=== PATIENT | male | born 1975 | race Caucasian/White ===

== ENCOUNTER 2017-07-30 11:56 | Day surgery (SDC) | payer OTHER ==
--- NOTE | 2017-07-29 15:18 | GHP ---
[f rep st] PREOP HISTORY AND PHYSICAL DATE OF ADMISSION: 07/30/2017 ADMISSION DIAGNOSIS: A 6 mm right ureteral calculus with hydronephrosis. HISTORY OF PRESENT ILLNESS: This is a gentleman who has had the above diagnosis who had attempted a spontaneous passage, unsuccessful, and he is admitted for ureteroscopic removal of stone. PAST MEDICAL HISTORY: He has had hematuria, ureterolithiasis, hypercholesterolemia, hypertension. PAST SURGICAL HISTORY: Surgery for kidney stones. MEDICATIONS: Advil, doxycycline, [place]. ALLERGIES: Penicillin and Nexium. FAMILY HISTORY: He is adopted. SOCIAL HISTORY: A nonsmoker, nondrinker. . REVIEW OF SYSTEMS: Negative for cardiac, respiratory, GI and endocrine. PHYSICAL EXAMINATION: VITAL SIGNS: Stable. CHEST: Clear. HEART: Regular rate and rhythm. ABDOM EN: Normal. No organomegaly, rebound or guarding. EXTREMITIES: Lower extremities are normal. ASSESSMENT AND PLAN: He will be admitted for a right ureteroscopic removal of the calculus. Indicat ion and complications have been discussed. /[id number]/MODL
--- NOTE | 2017-07-30 08:40 | PDHPUP ---
History & Physical Update H&P update statement: This history and physical update is based on an assessment of the patient which was completed after admission or registration (within 24 hours), but prior to the surgery/procedure. H&P update: H&P reviewed & patient examined, no change in patient's condition since H&P completed
[~2017-07-30 11:56] MED LIST: IOPAMIDOL (ISOVUE-M 300) 15 ML VIAL ONE; LIDOCAINE 2% JELLY 20 ML (UROJECT) ONE; ceFAZolin 2 GM/SWFI 2 GM/20 ML SYR IVP ONE
[2017-07-30] MEDS ORDERED: LR 1,000 ML IV ONE (12:01)
[2017-07-30] MEDS ORDERED: ceFAZolin 2 GM/SWFI 20 ML SYR IVP ONE (12:06)
--- NOTE | 2017-07-30 12:13 | PDANEPAE ---
ANE History of Present Illness 41 year old male presents for right ureteroscopy and stone removal. ANE Past Medical History - Cardiovascular History Hx Hypertension: No Hx Arrhythmias: No Hx Chest Pain: No Hx Coronary Artery / Peripheral Vascular Disease: No Hx CHF / Valvular Disease: No Hx Palpitations: No - Pulmonary History Hx COPD: No Hx Asthma/Reactive Airway Disease: No Hx Recent Upper Respiratory Infection: No Hx Oxygen in Use at Home: No Hx Sleep Apnea: Yes Sleep Apnea Screening Result - Last Documented: Positive Pulmonary History Comment: KEILA. PT CURRENTLY HAS PNEUMONIA - Neurologic History Hx Cerebrovascular Accident: No Hx Seizures: No Hx Dementia: No - Endocrine History Hx Diabetes: No Hypothyroid: No Hyperthyroid: No Obesity: yes - Renal History Hx Renal Disorders: No Renal History Comment: KIDNEY STONES - Liver History Hx Hepatic Disorders: Yes Hepatic History Comment: FATTY LIVER - Neurological & Psychiatric Hx Hx Neurological and Psychiatric Disorders: No - Cancer History Hx Cancer: No - Congenital Disorder History Hx Congenital Disorders: No Congenital History Comment: PT ADOPTED - GI History GERD: mild Hx Gastrointestinal Disorders: Yes Gastrointestinal History Comment: GERD - Other Health History Other Health History: NONE - Chronic Pain History Chronic Pain: No - Surgical History Prior Surgeries: KIDNEY STONE REMOVED 2013 ANE Review of Systems Review of systems is: negative Review of Systems: - Exercise capacity Exercise capacity: >=4 METS METS (RN): 4 METS ANE Patient History - Allergies Allergies/Adverse Reactions: esomeprazole magnesium [From Nexium] Allergy (Intermediate, Verified 07/29/17 12 :46) Other-Enter Comments Penicillins Allergy (Intermediate, Verified 07/29/17 12:46) Abdominal Pain - Home Medications Home medications: home medication list seen and reviewed Home Medications: Ceftin 07/29/17 [Last Taken 07/30/17] [place] 5/325 (*) 07/29/17 [Last Taken 07/30/17] Advil 400 mg PO PRN 07/30/17 [Last Taken 1 Day Ago ~07/29/17] - NPO status NPO Status: no food or drink >8 hours - Anes Hx Anes Hx: no prior problems - Smoking Hx Smoking Status: Never smoked Marijuana use: No - Alcohol Use Alcohol Use: Rarely - Family Anes Hx Family Anes Hx: neg - N/A Family Hx Anesthesia Complications: NONE ANE Labs/Vital Signs - Vital Signs Vital Signs: reviewed preoperatively; see RN documention for details Height: 165.1 cm Weight: 106.594 kg ANE Physical Exam - Airway Neck exam: FROM, increased neck circumference Mallampati Score: Class 2 Mouth exam: normal dental/mouth exam - Pulmonary Pulmonary: no respiratory distress - Cardiovascular Cardiovascular: regular rate and rhythym - ASA Status ASA Status: II ANE Anesthesia Plan Anesthesia Plan: GA w LMA Total IV Anesthesia: No
[2017-07-30] MEDS ORDERED: fentaNYL 100 MCG/2 ML INJ ONE ×3 (12:34→14:03)
[2017-07-30] MEDS ORDERED: PROPOFOL 200 MG/20 ML VIAL ONE (12:34)
[2017-07-30] MEDS ORDERED: DEXAMETHASONE 4 MG/ML VIAL ONE (12:44)
[2017-07-30] MEDS ORDERED: ONDANSETRON 4 MG/2 ML VIAL ONE (12:45)
[2017-07-30] MEDS ORDERED: LIDOCAINE 2% 5 ML SDV ONE (12:45)
[2017-07-30] MEDS ORDERED: PROMETHAZINE HCL 25 MG/ML INJ IVP PRN (13:57)
[2017-07-30] MEDS ORDERED: NALOXONE HCL 0.4 MG/ML INJ IVP PRN (13:57)
[2017-07-30] MEDS ORDERED: PHENYLEPHRINE HCL 100 MCG/ML SYR IVP PRN (13:57)
[2017-07-30] MEDS ORDERED: ONDANSETRON 4 MG/2 ML VIAL IVP PRN (13:57)
[2017-07-30] MEDS ORDERED: LR 500 ML IV PRN (13:57)
[2017-07-30] MEDS ORDERED: epHEDrine SULFATE 10 MG/ML SYR IVP PRN (13:57)
[2017-07-30] MEDS ORDERED: HYDROmorphONE/DILAUDID 1 MG/ML INJ IVP PRN (13:57)
--- NOTE | 2017-07-30 14:03 | GOP ---
[f rep st] OPERATIVE REPORT DATE OF OPERATION: 07/30/2017 SURGEON: Efrem Young MD PREOPERATIVE DIAGNOSIS: Right ureteral calculus. POSTOPERATIVE DIAGNOSIS: Right ureteral calculus. PROCEDURE PERFORMED: Cystoscopy, retrograde ureteral pyelogram, and ureteroscopy with laser lithotri psy, and placement of 4.7 multi-length stent with fluoroscopy and interpretation. FINDINGS: SPECIMENS: Stone. ESTIMATED BLOOD LOSS: Zero. DESCRIPTION OF PROCEDURE: Gentleman underwent general anesthesia. Prepped and draped in normal ster ile fashion in dorsal lithotomy position. Urethra normal. Prostate had mild BPH. Bladder had no tu mor, stones, foreign bodies, or diverticula. The right ureteral orifice was cannulated with a Poll[place] k catheter. Retrograde revealed a proximal ureteral calculus. I was able to pass a guidewire beyond the stone. He did have hydroureter and hydronephrosis above the stone. At that point, dilated the ureter with a ureteral access sheath. Was able to pass the flexible ureteroscope up to the stone, an d fragment it with the holmium laser lithotrite, and extract the stone fragments with a basket. At t he end of the procedure, nephroscopy revealed no residual stones in the renal pelvis or calices. He did have some small Richard plaques, then extraction of the scope and the ureteral access sheath reve aled an intact ureter. Because of the impaction of the stone and the dilation, I elected to place a 4.7 multi-length stent that curled in the renal pelvis, curled in the bladder. Bladder was emptied w ith a Germain catheter after placing Uro-Jet in the urethra. He will be discharged home without the sherly theana cristina, to see me in 1 week for stent removal. /[id number]/MODL
--- NOTE | 2017-07-30 14:03 | POSTOPPROG ---
Post Op Note Date of Operation: 07/30/17 Surgeon: Efrem Young Anesthesia: LMA Pre-op Diagnosis: stone Post-op Diagnosis: stone Indication: stone Procedure: ureteroscopy Inf/Abcess present in the surg proc area at time of surgery?: No EBL: Minimal Drains: Other (stent) Specimen(s): sent---dictated
[2017-07-30] MEDS: fentaNYL 100 MCG/2 ML INJ IVP PRN ×2 (14:06→14:14)
[2017-07-30] MEDS: HYDROmorphONE/DILAUDID 2 MG/ML INJ IVP PRN ×2 (14:35→14:52)
[2017-07-30] MEDS ORDERED: HYDROmorphONE/DILAUDID 2 MG/ML INJ ONE (14:39)
[2017-07-30 15:20] VITALS: PULSE 71; RESP 16; TEMP 97.7
[2017-07-30 15:42] VITALS: BP 140/99; O2SAT 90
[2017-07-30] MEDS ORDERED: HYDROCODONE/APAP 5/325 TAB PO ONE (16:15)
--- NOTE | 2017-07-30 17:50 | POSTANESTH ---
Post Anesthetic Evaluation Cardiovascular Status: Normal, Stable, Similar to Pre-Op Cond Respiratory Status: Normal, Stable, Similar to Pre-op Cond. Level of Consciousness/Mental Status: Can Participate in Eval, Alert and Oriented Pain Control: Adequate, Prn Tx Ordered Nausea/Vomiting Control: Adequate, Prn Tx Ordered Complications Possibly Related to Anesthesia: None Noted
== END 2017-07-30 16:20 | disposition home or self-care (01) ==
LOC: FSGY 11:56
PROVIDERS: ATTEND Specialist
PROC: 0TC68ZZ Extirpation of Matter from Right Ureter, Via Natural or Artificial Opening Endoscopic (ICD-10-PCS; principal; 2017-07-30 12:45)
DX: N13.2 Hydronephrosis with renal and ureteral calculous obstruction (principal); I10 Essential (primary) hypertension; E78.00 Pure hypercholesterolemia, unspecified
CPT/HCPCS: 52356; 76001; C1758; C1769; C1894; 82365-90; C2625; J0690; J1100; J1170; J2405; J2704; J3010; Q9967